=== PATIENT | female | born 1940 | race Caucasian/White ===

== ENCOUNTER 2020-03-01 14:26 | Emergency (ER) | payer SELFPAY ==
--- NOTE | 2020-03-01 14:58 | EDM.PDOC ---
ED [facility] GENERAL MEDICAL PROBLEM - General Stated Complaint: AMBULANCE Time Seen by Provider: 03/01/20 14:45 Source of Information: Reports: Patient History Limitations: Reports: No Limitations - History of Present Illness INITIAL COMMENTS - FREE TEXT/NARRATIVE: This 80 yo female patient was brought to the ED by [facility] due to nausea, vomiting, chills and generalized body pain. The patient reports her symptoms started today. The patient reports she does have a history of neuropathy and is currently taking Kratom for her neuropathy. The the patient reports she normally takes her Kratom daily (orally). The patient reports she did not take her Kratom today. The patient denies any recent illnesses or trauma. The patient reports she does have a provider she sees for her neuropathy and has not seen him since last March. Onset: Today Duration: Constant Location: Reports: Generalized Quality: Reports: Other Severity: Moderate Improves with: Reports: None Worsens with: Reports: None Context: Reports: Other Associated Symptoms: Reports: No Other Symptoms Generalized Pain Score (Numeric/FACES): 10 - Related Data Allergies Allergy/AdvReac Type Severity Reaction Status Date / Time No Known Allergies Allergy Verified 03/01/20 15:21 ED ROS GENERAL - Review of Systems Review Of Systems: Comprehensive ROS is negative, except as noted in HPI. ED EXAM, GENERAL - Physical Exam Exam: See Below Exam Limited By: No Limitations General Appearance: Alert, WD/WN, Moderate Distress, Obese Eye Exam: Bilateral Eye: EOMI, Normal Inspection, PERRL Ears: Normal External Exam, Normal Canal, Hearing Grossly Normal, Normal TMs Nose: Normal Inspection, Normal Mucosa, No Blood Throat/Mouth: Normal Inspection, Normal Lips, Normal Teeth, Normal Gums, Normal Oropharynx, Normal Voice, No Airway Compromise Head: Atraumatic, Normocephalic Neck: Normal Inspection, Supple, Non-Tender, Full Range of Motion Respiratory/Chest: Decreased Breath Sounds (diffuse) Cardiovascular: Normal Peripheral Pulses, Regular Rate, Rhythm, No Edema, No Gallop, No JVD, No Murmur, No Rub GI/Abdominal: Normal Bowel Sounds, Soft, Non-Tender, No Organomegaly, No Distention, No Abnormal Bruit, No Mass (Female) Exam: Deferred Rectal (Female) Exam: Deferred Back Exam: Normal Inspection, Full Range of Motion, NT Extremities: Normal Inspection, Normal Range of Motion, Non-Tender, Normal Capillary Refill, No Pedal Edema Neurological: Alert, Oriented, CN II-XII Intact, Normal Cognition Psychiatric: Anxious Skin Exam: Diaphoretic, Increased Warmth Lymphatic: No Adenopathy Course - Vital Signs Last Recorded V/S: Last Vital Signs Temp Pulse 127 H 03/01/20 16:45 Resp 16 03/01/20 16:45 BP 135/72 03/01/20 16:45 Pulse Ox 100 03/01/20 16:45 - Orders/Labs/Meds Orders: Active Orders 24 hr Category Date Time Status EKG Documentation Completion [RC] STAT Care 03/01/20 14:32 Active CULTURE BLOOD [BC] Stat Lab 03/01/20 15:01 Results CULTURE BLOOD [BC] Stat Lab 03/01/20 16:38 Received CULTURE URINE [RM] Urgent Lab 03/01/20 17:53 Received REFLEX LACTIC ACID YES OR NO [CHEM] Routine Lab 03/01/20 16:12 Received Labs: Laboratory Tests 03/01/20 03/01/20 03/01/20 Range/Units 14:48 15:01 15:01 WBC 1.0 L* (5.0-10.0) 10^3/uL RBC 3.76 L (4.2-5.4) 10^6/uL Hgb 13.0 (12.0-16.0) g/dL Hct 40.6 (37.0-47.0) % MCV 108.0 H (80-100) fL MCH 34.6 H (27.0-34.0) pg MCHC 32.0 L (33.0-35.0) g/dL Plt Count 108 L (150-450) 10^3/uL Neut % (Auto) 88.2 H (42.2-75.2) % Lymph % (Auto) 8.8 L (20.5-50.1) % [place] % (Auto) 0.0 L (2-8) % Eos % (Auto) 1.0 (1.0-3.0) % Baso % (Auto) 2.0 H (0.0-1.0) % Add Manual Diff Yes Neutrophils % (Manual) 34 L (42-75) % Band Neutrophils % 30 % Lymphocytes % (Manual) 21 (20-50) % Eosinophils % (Manual) 5 H (1-3) % Metamyelocytes % 2 Myelocytes % 5 Promyelocytes % 3 D-Dimer, Quantitative 3430 H (0-400) ng/mL Sodium (136-145) mmol/L Potassium (3.5-5.1) mmol/L Chloride (98-107) mmol/L Carbon Dioxide (21-32) mmol/L Anion Gap (7-13) mEq/L BUN (7-18) mg/dL Creatinine (0.55-1.02) mg/dL Est Cr Clr Drug Dosing Estimated GFR (MDRD) BUN/Creatinine Ratio (No establ ref range) Glucose (74-99) mg/dL Lactic Acid (0.4-2.0) mmol/L Calcium (8.5-10.1) mg/dL Total Bilirubin (0.2-1.0) mg/dL AST (15-37) U/L ALT (14-59) U/L Alkaline Phosphatase (46-116) U/L Troponin I (0.000-0.056) ng/mL B-Natriuretic Peptide (0-100) pg/ml Total Protein (6.4-8.2) g/dL Albumin (3.4-5.0) g/dL Globulin Albumin/Globulin Ratio Urine Color (YELLOW) Urine Appearance (CLEAR) Urine pH (5.0-9.0) Ur Specific [place] (1.005-1.030) Urine Protein (NEGATIVE) Urine Glucose (UA) (NEGATIVE) Urine Ketones (NEGATIVE) Urine Occult Blood (NEGATIVE) Urine Nitrite (NEGATIVE) Urine Bilirubin (NEGATIVE) Urine Urobilinogen (0.2-1.0) mg/dL Ur Leukocyte Esterase (NEGATIVE) Urine RBC /HPF Urine WBC (0-5/HPF) /HPF Ur Epithelial Cells (NOT SEEN) /HPF Amorphous Sediment (NOT SEEN) /HPF Urine Bacteria (0-FEW/HPF) /HPF Fine Granular Casts (NOT SEEN) /LPF Urine Mucus (NOT SEEN) /LPF Urine Opiates Screen (NEGATIVE) Ur Oxycodone Screen (NEGATIVE) Urine Methadone Screen (NEGATIVE) Ur Barbiturates Screen (NEGATIVE) U Tricyclic Antidepress (NEGATIVE) Ur Phencyclidine Scrn (NEGATIVE) Ur Amphetamine Screen (NEGATIVE) U Methamphetamines Scrn (NEGATIVE) Urine MDMA Screen (NEGATIVE) U Benzodiazepines Scrn (NEGATIVE) Urine Cocaine Screen (NEGATIVE) U Marijuana (THC) Screen (NEGATIVE) SARS-CoV-2 RNA (DHEERAJ) Negative (NEGATIVE) 03/01/20 03/01/20 03/01/20 Range/Units 15:01 15:01 17:52 WBC (5.0-10.0) 10^3/uL RBC (4.2-5.4) 10^6/uL Hgb (12.0-16.0) g/dL Hct (37.0-47.0) % MCV (80-100) fL MCH (27.0-34.0) pg MCHC (33.0-35.0) g/dL Plt Count (150-450) 10^3/uL Neut % (Auto) (42.2-75.2) % Lymph % (Auto) (20.5-50.1) % [place] % (Auto) (2-8) % Eos % (Auto) (1.0-3.0) % Baso % (Auto) (0.0-1.0) % Add Manual Diff Neutrophils % (Manual) (42-75) % Band Neutrophils % % Lymphocytes % (Manual) (20-50) % Eosinophils % (Manual) (1-3) % Metamyelocytes % Myelocytes % Promyelocytes % D-Dimer, Quantitative (0-400) ng/mL Sodium 144 (136-145) mmol/L Potassium 3.4 L (3.5-5.1) mmol/L Chloride 107 (98-107) mmol/L Carbon Dioxide 20 L (21-32) mmol/L Anion Gap 20.4 H (7-13) mEq/L BUN 18 (7-18) mg/dL Creatinine 1.58 H (0.55-1.02) mg/dL Est Cr Clr Drug Dosing TNP Estimated GFR (MDRD) 31 BUN/Creatinine Ratio 11.4 (No establ ref range) Glucose 73 L (74-99) mg/dL Lactic Acid 2.7 H* (0.4-2.0) mmol/L Calcium 8.3 L (8.5-10.1) mg/dL Total Bilirubin 1.5 H (0.2-1.0) mg/dL AST 159 H (15-37) U/L ALT 127 H (14-59) U/L Alkaline Phosphatase 173 H (46-116) U/L Troponin I 0.051 (0.000-0.056) ng/mL B-Natriuretic Peptide 100 (0-100) pg/ml Total Protein 5.5 L (6.4-8.2) g/dL Albumin 3.3 L (3.4-5.0) g/dL Globulin 2.2 Albumin/Globulin Ratio 1.50 Urine Color (YELLOW) Urine Appearance (CLEAR) Urine pH (5.0-9.0) Ur Specific [place] (1.005-1.030) Urine Protein (NEGATIVE) Urine Glucose (UA) (NEGATIVE) Urine Ketones (NEGATIVE) Urine Occult Blood (NEGATIVE) Urine Nitrite (NEGATIVE) Urine Bilirubin (NEGATIVE) Urine Urobilinogen (0.2-1.0) mg/dL Ur Leukocyte Esterase (NEGATIVE) Urine RBC /HPF Urine WBC (0-5/HPF) /HPF Ur Epithelial Cells (NOT SEEN) /HPF Amorphous Sediment (NOT SEEN) /HPF Urine Bacteria (0-FEW/HPF) /HPF Fine Granular Casts (NOT SEEN) /LPF Urine Mucus (NOT SEEN) /LPF Urine Opiates Screen Negative (NEGATIVE) Ur Oxycodone Screen Negative (NEGATIVE) Urine Methadone Screen Negative (NEGATIVE) Ur Barbiturates Screen Negative (NEGATIVE) U Tricyclic Antidepress Negative (NEGATIVE) Ur Phencyclidine Scrn Negative (NEGATIVE) Ur Amphetamine Screen Negative (NEGATIVE) U Methamphetamines Scrn Negative (NEGATIVE) Urine MDMA Screen Negative (NEGATIVE) U Benzodiazepines Scrn Negative (NEGATIVE) Urine Cocaine Screen Negative (NEGATIVE) U Marijuana (THC) Screen Positive H (NEGATIVE) SARS-CoV-2 RNA (DHEERAJ) (NEGATIVE) 03/01/20 Range/Units 17:53 WBC (5.0-10.0) 10^3/uL RBC (4.2-5.4) 10^6/uL Hgb (12.0-16.0) g/dL Hct (37.0-47.0) % MCV (80-100) fL MCH (27.0-34.0) pg MCHC (33.0-35.0) g/dL Plt Count (150-450) 10^3/uL Neut % (Auto) (42.2-75.2) % Lymph % (Auto) (20.5-50.1) % [place] % (Auto) (2-8) % Eos % (Auto) (1.0-3.0) % Baso % (Auto) (0.0-1.0) % Add Manual Diff Neutrophils % (Manual) (42-75) % Band Neutrophils % % Lymphocytes % (Manual) (20-50) % Eosinophils % (Manual) (1-3) % Metamyelocytes % Myelocytes % Promyelocytes % D-Dimer, Quantitative (0-400) ng/mL Sodium (136-145) mmol/L Potassium (3.5-5.1) mmol/L Chloride (98-107) mmol/L Carbon Dioxide (21-32) mmol/L Anion Gap (7-13) mEq/L BUN (7-18) mg/dL Creatinine (0.55-1.02) mg/dL Est Cr Clr Drug Dosing Estimated GFR (MDRD) BUN/Creatinine Ratio (No establ ref range) Glucose (74-99) mg/dL Lactic Acid (0.4-2.0) mmol/L Calcium (8.5-10.1) mg/dL Total Bilirubin (0.2-1.0) mg/dL AST (15-37) U/L ALT (14-59) U/L Alkaline Phosphatase (46-116) U/L Troponin I (0.000-0.056) ng/mL B-Natriuretic Peptide (0-100) pg/ml Total Protein (6.4-8.2) g/dL Albumin (3.4-5.0) g/dL Globulin Albumin/Globulin Ratio Urine Color Yellow (YELLOW) Urine Appearance Slightly cloudy (CLEAR) Urine pH 6.0 (5.0-9.0) Ur Specific [place] 1.015 (1.005-1.030) Urine Protein 100 H (NEGATIVE) Urine Glucose (UA) Negative (NEGATIVE) Urine Ketones Negative (NEGATIVE) Urine Occult Blood Moderate H (NEGATIVE) Urine Nitrite Positive H (NEGATIVE) Urine Bilirubin Negative (NEGATIVE) Urine Urobilinogen 0.2 (0.2-1.0) mg/dL Ur Leukocyte Esterase Small H (NEGATIVE) Urine RBC 5-10 H /HPF Urine WBC 10-20 H (0-5/HPF) /HPF Ur Epithelial Cells Few (NOT SEEN) /HPF Amorphous Sediment Few (NOT SEEN) /HPF Urine Bacteria Many H (0-FEW/HPF) /HPF Fine Granular Casts Occasional H (NOT SEEN) /LPF Urine Mucus Few H (NOT SEEN) /LPF Urine Opiates Screen (NEGATIVE) Ur Oxycodone Screen (NEGATIVE) Urine Methadone Screen (NEGATIVE) Ur Barbiturates Screen (NEGATIVE) U Tricyclic Antidepress (NEGATIVE) Ur Phencyclidine Scrn (NEGATIVE) Ur Amphetamine Screen (NEGATIVE) U Methamphetamines Scrn (NEGATIVE) Urine MDMA Screen (NEGATIVE) U Benzodiazepines Scrn (NEGATIVE) Urine Cocaine Screen (NEGATIVE) U Marijuana (THC) Screen (NEGATIVE) SARS-CoV-2 RNA (DHEERAJ) (NEGATIVE) Meds: Medications Discontinued Medications Generic Name Dose Route Start Last Admin Trade Name Freq PRN Reason Stop Dose Admin Sodium Chloride 1,000 mls @ 999 mls/hr 03/01/20 16:23 03/01/20 16:46 Normal Saline IV 03/01/20 17:23 999 mls/hr .BOLUS ONE Administration Lorazepam 1 mg 03/01/20 16:23 03/01/20 16:46 Ativan IVPUSH 03/01/20 16:24 1 mg ONETIME ONE Administration Metoclopramide HCl 10 mg 03/01/20 16:23 03/01/20 16:46 Reglan IVPUSH 03/01/20 16:24 10 mg ONETIME ONE Administration - Re-Assessments/Exams Free Text/Narrative Re-Assessment/Exam: 03/01/20 19:05 A call was placed to the patient's daughter (Anat) explaining the assessment and lab findings. The patient's daughter agreed with the transfer to [facility]. Departure - Departure Time of Disposition: 19:01 Disposition: DC/Tfer to [facility] 02 Condition: Fair Clinical Impression: Hypoxemia, Elevated d-dimer, Elevated LFTs Acute renal failure (ARF) Qualifiers: Acute renal failure type: unspecified Qualified Code(s): N17.9 - Acute kidney failure, unspecified - Discharge Information *PRESCRIPTION DRUG MONITORING PROGRAM REVIEWED*: Not Applicable *COPY OF PRESCRIPTION DRUG MONITORING REPORT IN PATIENT JOHN: Not Applicable Forms: Interfacility Transfer EMTALA Care Plan Goals: Discussed the patient's history, examination, EKG and lab results with Dr. Doe. Dr. Doe accepted the patient for continued evaluation and further management as an inpatient at [facility] in [place]. The patient will be transported by [facility]. Sepsis Event Note (ED) - Focused Exam Vital Signs: Vital Signs Pulse Resp BP Pulse Ox 03/01/20 16:45 127 H 16 135/72 100 - My Orders Last 24 Hours: My Active Orders 03/01/20 14:32 EKG Documentation Completion [RC] STAT 03/01/20 15:01 CULTURE BLOOD [BC] Stat 03/01/20 16:12 REFLEX LACTIC ACID YES OR NO [CHEM] Routine 03/01/20 16:38 CULTURE BLOOD [BC] Stat 03/01/20 17:53 CULTURE URINE [RM] Urgent - Assessment/Plan Last 24 Hours: My Active Orders 03/01/20 14:32 EKG Documentation Completion [RC] STAT 03/01/20 15:01 CULTURE BLOOD [BC] Stat 03/01/20 16:12 REFLEX LACTIC ACID YES OR NO [CHEM] Routine 03/01/20 16:38 CULTURE BLOOD [BC] Stat 03/01/20 17:53 CULTURE URINE [RM] Urgent
[2020-03-01 16:02] LABS: ANION GAP 20.4 mEq/L (7-13); CHLORIDE,CL 107 mmol/L (98-107); SODIUM,NA 144 mmol/L (136-145)
[2020-03-01] MEDS: Metoclopramide 10 MG/2 ML SDV IVPUSH ONE (16:46)
[2020-03-01] MEDS: Sodium Chloride 0.9% 1,000 ML IV ONE (16:46)
[2020-03-01] MEDS: LORazepam 2 MG/ML SDV IVPUSH ONE (16:46)
== END 2020-03-01 19:24 ==
LOC: DL.ED 14:26
DX: N17.9 Acute kidney failure, unspecified (principal); R09.02 Hypoxemia; R79.1 Abnormal coagulation profile; R79.89 Other specified abnormal findings of blood chemistry; Z20.828 Contact with and (suspected) exposure to other viral communicable diseases
CPT/HCPCS: 36415; 80053; 80305; 81001; 83605; 83880; 84484; 85025; 85379; 87040; 87077; 87086; 87088; 87186; 87635; 93005; 96374; 96375; 99285; J2060; J2765; J7030; 93010; 99283; U0002

== ENCOUNTER 2020-03-11 11:36 | Inpatient (IN) | payer MEDICARE ==
[2020-03-11] MEDS: cefTRIAXone 2 GM in Sodium Chloride 0.9% 100 ML IV SCH (17:41)
[2020-03-11] MEDS: Sodium Chloride 0.9% 10 ML Syringe FLUSH PRN ×2 (17:43→18:28)
--- NOTE | 2020-03-11 17:43 | PCM.HP ---
H&P History of Present Illness - General Date of Service: 03/11/20 Admit Problem/Dx: Admission Diagnosis/Problem Admission Diagnosis/Problem Sepsis Source of Information: Patient, Other (notes from [facility]) - History of Present Illness Initial Comments - Free Text/Narative: 80-year-old with a history of hypertension, dyslipidemia, chronic back pain. The patient was admitted to [facility] with acute metabolic encephalopathy secondary to sepsis secondary to UTI with Proteus mirabilis. The patient was also noted to have hydronephrosis on the left side with a 4 mm stone. The patient's blood cultures were positive for proteus. The patient underwent ureteral stent placement on 03 March. infectious disease was consulted and the patient was treated with ceftriaxone PICC line placed The patient was transferred to [facility] for further physical, occupational therapy and IV antibiotic Treatment. Auditory studies on 10 March showed a white count of 7, hemoglobin 11.2, platelet count of 88. On 08 March sodium was 140, creatinine 0.8 Generalized Pain Score (Numeric/FACES): 6 - Related Data Allergies/Adverse Reactions: Allergies Allergy/AdvReac Type Severity Reaction Status Date / Time No Known Allergies Allergy Verified 03/11/20 12:42 Home Medications: Home Meds Acetaminophen 1,000 mg PO Q6HR PRN 03/11/20 [History] Ascorbic Acid [Vitamin C] 500 mg PO DAILY 03/11/20 [History] Cholecalciferol (Vitamin D3) [Vitamin D3] 2,000 unit PO DAILY 03/11/20 [History] Gabapentin [Neurontin] 100 mg PO TID 03/11/20 [History] Ibuprofen 400 mg PO Q6HR PRN 03/11/20 [History] Magnesium Oxide 400 mg PO DAILY 03/11/20 [History] Vitamin B Complex 1 tab PO DAILY 03/11/20 [History] amLODIPine [Norvasc] 10 mg PO DAILY 03/11/20 [History] busPIRone [Buspar] 5 mg PO BID 03/11/20 [History] Past Medical History HEENT History: Reports: Other (See Below) Other HEENT History: lasik surgery Cardiovascular History: Reports: Hypertension Genitourinary History: Reports: Retention, Urinary, Urinary Incontinence, UTI, Recurrent PATIENT EDUCATOR History: Reports: Musculoskeletal History: Reports: Arthritis, Back Pain, Chronic, Osteoarthritis Neurological History: Reports: Neuropathy, Peripheral Oncologic (Cancer) History: Reports: Other (See Below) Other Oncologic History: Double mastectomy - Infectious Disease History Infectious Disease History: Reports: Chicken Pox, Influenza, Measles, Mumps, Rubella, Shingles - Past Surgical History HEENT Surgical History: Reports: LASIK Cardiovascular Surgical History: Reports: None GI Surgical History: Reports: Cholecystectomy, Colonoscopy Female Surgical History: Reports: Ureteral Stent Neurological Surgical History: Reports: None Musculoskeletal Surgical History: Reports: Shoulder Replacement, Other (See Below) Other Musculoskeletal Surgeries/Procedures:: both shoulders Oncologic Surgical History: Reports: Mastectomy Social & Family History - Family History Family Medical History: No Pertinent Family History - Tobacco Use Tobacco Use Status *Q: Never Tobacco User Second Hand Smoke Exposure: No - Caffeine Use Caffeine Use: Reports: Coffee - Recreational Drug Use Recreational Drug Use: No H&P Review of Systems - Review of Systems: Review Of Systems: See Below General: Denies: Fever, Chills Pulmonary: Denies: Shortness of Breath Cardiovascular: Denies: Chest Pain, Edema Gastrointestinal: Denies: Abdominal Pain Genitourinary: Reports: Other (has Dent catheter). Denies: Dysuria Psychiatric: Denies: Confusion Exam - Exam Exam: See Below - Vital Signs Vital Signs: Last Vital Signs Temp 97.0 F 03/11/20 17:18 Pulse 112 H 03/11/20 17:18 Resp 20 03/11/20 17:18 BP 130/69 03/11/20 17:18 Pulse Ox 94 L 03/11/20 17:18 Weight: 174 lb - Exam General: Alert, Oriented Neck: Supple Lungs: Clear to Auscultation, Normal Respiratory Effort Cardiovascular: Regular Rate, Regular Rhythm GI/Abdominal Exam: Normal Bowel Sounds, Soft, Non-Tender Extremities: No Pedal Edema Neuro Extensive - Mental Status: Alert, Oriented x3 *Q Meaningful Use (ADM) - VTE *Q VTE Anticoagulation Contraindications: Medical/Procedure Contrai - Problem List (1) Sepsis SNOMED Code(s): 11335244 ICD Code: A41.9 - SEPSIS, UNSPECIFIED ORGANISM Status: Acute Current Visit: Yes (2) Weakness SNOMED Code(s): 39017537 ICD Code: R53.1 - WEAKNESS Status: Acute Current Visit: Yes (3) Hypertension SNOMED Code(s): 52185687 ICD Code: I10 - ESSENTIAL (PRIMARY) HYPERTENSION Status: Acute Current Visit: Yes Problem List Initiated/Reviewed/Updated: Yes Orders Last 24hrs: Active Orders 24 hr Category Date Time Status Patient Status [ADT] Routine ADT 03/11/20 17:18 Active Ambulate [RC] PER UNIT ROUTINE Care 03/11/20 17:19 Active Antiembolic Devices [RC] PER UNIT ROUTINE Care 03/11/20 17:20 Active Oxygen Therapy [RC] .PRN Care 03/11/20 17:18 Active Up With Assistance [RC] ASDIRECTED Care 03/11/20 17:18 Active Vital Signs [RC] QSHIFT Care 03/11/20 17:18 Active OT Evaluation and Treatment [CONS] Routine Cons 03/11/20 17:18 Active PT Evaluation and Treatment [CONS] Routine Cons 03/11/20 17:18 Active Regular Diet [DIET] Diet 03/11/20 Breakfast Cancelled Soft Diet [DIET] Diet 03/12/20 Breakfast Active Acetaminophen [Tylenol Extra Strength] Med 03/11/20 17:14 Active 1,000 mg PO Q6HR PRN Ascorbic Acid [Vitamin C] Med 03/12/20 09:00 Active 500 mg PO DAILY Cholecalciferol (Vitamin D3) [Vitamin D3] Med 03/12/20 09:00 Active 50 mcg PO DAILY Gabapentin [Neurontin] Med 03/11/20 21:00 Active 100 mg PO TID Magnesium Oxide [Magnesium Oxide] Med 03/12/20 09:00 Pending 400 mg PO DAILY Sodium Chloride 0.9% [Saline Flush] Med 03/11/20 17:18 Active 10 ml FLUSH ASDIRECTED PRN Vitamin B Complex Med 03/12/20 09:00 Active 1 each PO DAILY Zolpidem [Ambien] Med 03/11/20 17:18 Active 5 mg PO BEDTIME PRN amLODIPine [Norvasc] Med 03/12/20 09:00 Active 10 mg PO DAILY busPIRone [Buspar] Med 03/11/20 21:00 Active 7.5 mg PO BID cefTRIAXone [Rocephin] 2 gm Med 03/11/20 17:30 Active Sodium Chloride 0.9% [Normal Saline] 100 ml IV Q24H Anticoagulation Contraindications VTE [AST] Per Unit Oth 03/11/20 17:18 Ordered Routine Antiembolic Hose [OM.PC] Per Unit Routine Oth 03/11/20 17:19 Ordered Peripheral IV Insertion Adult [OM.PC] Routine Oth 03/11/20 17:18 Ordered Saline Lock Insert [OM.PC] Routine Oth 03/11/20 17:18 Ordered Resuscitation Status Routine Resus Stat 03/11/20 17:18 Ordered Medication Orders Acetaminophen (Tylenol Extra Strength) 1,000 mg PO Q6HR PRN PRN Reason: Pain (mild 1-3) Amlodipine Besylate (Norvasc) 10 mg PO DAILY LIZETT Ascorbic Acid (Vitamin C) 500 mg PO DAILY LIZETT Buspirone HCl (Buspar) 7.5 mg PO BID LIZETT Cholecalciferol (Vitamin D3) 50 mcg PO DAILY LIZETT Gabapentin (Neurontin) 100 mg PO TID LIZETT Ceftriaxone Sodium 2 gm/ (Sodium Chloride) 100 mls @ 200 mls/hr IV Q24H LIZETT Non-Formulary Medication (Magnesium Oxide [Magnesium Oxide]) 400 mg PO DAILY LIZETT Sodium Chloride (Saline Flush) 10 ml FLUSH ASDIRECTED PRN PRN Reason: Keep Vein Open Vitamin B Complex (Vitamin B Complex) 1 each PO DAILY LIZETT Zolpidem Tartrate (Ambien) 5 mg PO BEDTIME PRN PRN Reason: Sleep Assessment/Plan Comment:: 80-year-old with a history of hypertension, dyslipidemia, chronic back pain. The patient was admitted to [facility] with acute metabolic encephalopathy secondary to sepsis secondary to UTI with Proteus mirabilis. The patient was also noted to have hydronephrosis on the left side with a 4 mm stone. The patient's blood cultures were positive for proteus. The patient underwent ureteral stent placement on 03 March. infectious disease was consulted and the patient was treated with ceftriaxone PICC line placed The patient was transferred to [facility] for further physical, occupational therapy and IV antibiotic Treatment. Auditory studies on 10 March showed a white count of 7, hemoglobin 11.2, platelet count of 88. On 08 March sodium was 140, creatinine 0.8 sepsis due to Proteus mirabilis due to complecated urinary tract infection with left hydronephrosis due to ureteral stone continue IV antibiotic treatment with ceftriaxone Follow with ID Hydronephrosis and ureteral stone on the left side Ureteral drain placed Follow up with urology Maintain Dent catheter for now Hypertension Treat with Norvasc We'll monitor chronic back pain Continue Neurontin Ibuprofen as needed CODE STATUS was discussed, the patient wish full CODE STATUS
[2020-03-11] MEDS: Acetaminophen 500 MG Tab PO PRN (18:21)
[2020-03-11] MEDS: busPIRone 15 MG Tab PO SCH (20:11)
[2020-03-11] MEDS: Gabapentin 100 MG Cap PO SCH (20:11)
[2020-03-11] MEDS: Zolpidem 5 MG Tab PO PRN (20:11)
[2020-03-11] MEDS ORDERED: BUSPIRONE 5 MG PO SCH (21:00)
[2020-03-11] MEDS: Ibuprofen 400 MG Tab PO PRN (22:35)
[2020-03-12] MEDS: Acetaminophen 500 MG Tab PO PRN ×2 (05:34→11:49)
[2020-03-12] MEDS: Cholecalciferol (Vitamin D3) 25 MCG Tab PO SCH (08:51)
[2020-03-12] MEDS: Gabapentin 100 MG Cap PO SCH ×3 (08:52→20:02)
[2020-03-12] MEDS: amLODIPine 5 MG Tab PO SCH (08:52)
[2020-03-12] MEDS: Vitamin B Complex Cap PO SCH (08:52)
[2020-03-12] MEDS: busPIRone 15 MG Tab PO SCH ×2 (08:52→20:02)
[2020-03-12] MEDS: Ascorbic Acid 500 MG Tab PO SCH (08:53)
[2020-03-12] MEDS ORDERED: Non-Formulary Medication 1 Each (Magnesium Oxide [Magnesium Oxide] 400 MG) PO SCH (09:00)
[2020-03-12] MEDS: Mupirocin Oint 22 GM Tube TOP SCH ×2 (11:53→20:03)
[2020-03-12] MEDS: Nystatin Topical Powder 30 GM Bottle TOP SCH ×2 (11:53→20:03)
[2020-03-12] MEDS: Acetaminophen/HYDROcodone 325-5 MG Tab PO PRN ×2 (13:31→18:21)
[2020-03-12] MEDS: cefTRIAXone 2 GM in Sodium Chloride 0.9% 100 ML IV SCH (17:11)
[2020-03-12] MEDS: Zolpidem 5 MG Tab PO PRN (20:03)
[2020-03-13] MEDS: Acetaminophen/HYDROcodone 325-5 MG Tab PO PRN ×4 (01:52→19:55)
[2020-03-13] MEDS: Ibuprofen 400 MG Tab PO PRN (05:35)
[2020-03-13 07:04] LABS: ANION GAP 9.2 mEq/L (7-13); CHLORIDE,CL 106 mmol/L (98-107); SODIUM,NA 141 mmol/L (136-145)
[2020-03-13] MEDS ORDERED: Potassium Chloride 10 MEQ Tab.ER PO ONE (07:20)
[2020-03-13] MEDS: Ascorbic Acid 500 MG Tab PO SCH (10:02)
[2020-03-13] MEDS: Gabapentin 100 MG Cap PO SCH ×3 (10:02→19:59)
[2020-03-13] MEDS: Vitamin B Complex Cap PO SCH (10:02)
[2020-03-13] MEDS: busPIRone 15 MG Tab PO SCH ×2 (10:03→19:59)
[2020-03-13] MEDS: Cholecalciferol (Vitamin D3) 25 MCG Tab PO SCH (10:03)
[2020-03-13] MEDS: Mupirocin Oint 22 GM Tube TOP SCH ×2 (10:04→20:03)
[2020-03-13] MEDS: Nystatin Topical Powder 30 GM Bottle TOP SCH ×2 (10:04→20:04)
[2020-03-13] MEDS: amLODIPine 5 MG Tab PO SCH (10:04)
[2020-03-13] MEDS: Sodium Chloride 0.9% 10 ML Syringe FLUSH PRN ×2 (17:35→21:01)
[2020-03-13] MEDS: cefTRIAXone 2 GM in Sodium Chloride 0.9% 100 ML IV SCH (17:35)
[2020-03-14] MEDS: Acetaminophen/HYDROcodone 325-5 MG Tab PO PRN ×4 (02:08→21:42)
[2020-03-14] MEDS: Ibuprofen 400 MG Tab PO PRN ×3 (05:34→23:33)
[2020-03-14] MEDS: Acetaminophen 500 MG Tab PO PRN ×2 (07:12→23:32)
[2020-03-14] MEDS: Vitamin B Complex Cap PO SCH (08:11)
[2020-03-14] MEDS: Ascorbic Acid 500 MG Tab PO SCH (08:12)
[2020-03-14] MEDS: amLODIPine 5 MG Tab PO SCH (08:12)
[2020-03-14] MEDS: Cholecalciferol (Vitamin D3) 25 MCG Tab PO SCH (08:12)
[2020-03-14] MEDS: busPIRone 15 MG Tab PO SCH ×2 (08:13→21:44)
[2020-03-14] MEDS: Gabapentin 100 MG Cap PO SCH ×2 (08:13→13:38)
[2020-03-14] MEDS: Mupirocin Oint 22 GM Tube TOP SCH ×2 (08:17→21:48)
[2020-03-14] MEDS: Nystatin Topical Powder 30 GM Bottle TOP SCH ×2 (08:17→21:49)
[2020-03-14] MEDS: Sodium Chloride 0.9% 10 ML Syringe FLUSH PRN ×2 (17:31→21:56)
[2020-03-14] MEDS: cefTRIAXone 2 GM in Sodium Chloride 0.9% 100 ML IV SCH (17:32)
[2020-03-14] MEDS: Gabapentin 300 MG Cap PO SCH (21:46)
[2020-03-15] MEDS: Acetaminophen/HYDROcodone 325-5 MG Tab PO PRN ×4 (06:37→20:25)
[2020-03-15] MEDS: Gabapentin 300 MG Cap PO SCH ×3 (09:02→20:25)
[2020-03-15] MEDS: Vitamin B Complex Cap PO SCH (09:02)
[2020-03-15] MEDS: Ascorbic Acid 500 MG Tab PO SCH (09:03)
[2020-03-15] MEDS: busPIRone 15 MG Tab PO SCH ×2 (09:03→20:25)
[2020-03-15] MEDS: Cholecalciferol (Vitamin D3) 25 MCG Tab PO SCH (09:03)
[2020-03-15] MEDS: amLODIPine 5 MG Tab PO SCH (09:04)
[2020-03-15] MEDS: Mupirocin Oint 22 GM Tube TOP SCH ×2 (09:10→20:32)
[2020-03-15] MEDS: Nystatin Topical Powder 30 GM Bottle TOP SCH ×2 (09:10→20:33)
[2020-03-15] MEDS: cefTRIAXone 2 GM in Sodium Chloride 0.9% 100 ML IV SCH (17:46)
[2020-03-15] MEDS: Ibuprofen 400 MG Tab PO PRN (20:31)
[2020-03-16] MEDS: Acetaminophen/HYDROcodone 325-5 MG Tab PO PRN ×4 (00:31→14:20)
[2020-03-16] MEDS: Nystatin Topical Powder 30 GM Bottle TOP SCH ×2 (10:18→21:01)
[2020-03-16] MEDS: Mupirocin Oint 22 GM Tube TOP SCH ×2 (10:19→21:03)
[2020-03-16] MEDS: Gabapentin 300 MG Cap PO SCH ×3 (10:19→20:49)
[2020-03-16] MEDS: Cholecalciferol (Vitamin D3) 25 MCG Tab PO SCH (10:19)
[2020-03-16] MEDS: amLODIPine 5 MG Tab PO SCH (10:20)
[2020-03-16] MEDS: Vitamin B Complex Cap PO SCH (10:20)
[2020-03-16] MEDS: Ascorbic Acid 500 MG Tab PO SCH (10:20)
[2020-03-16] MEDS: busPIRone 15 MG Tab PO SCH ×2 (10:21→20:50)
[2020-03-16] MEDS: cefTRIAXone 2 GM in Sodium Chloride 0.9% 100 ML IV SCH (17:23)
[2020-03-16] MEDS: Acetaminophen 500 MG Tab PO PRN (20:57)
[2020-03-17] MEDS: Acetaminophen/HYDROcodone 325-5 MG Tab PO PRN ×6 (00:15→20:55)
[2020-03-17] MEDS: Ibuprofen 400 MG Tab PO PRN (04:11)
[2020-03-17 06:56] LABS: ANION GAP 13.7 mEq/L (7-13); CHLORIDE,CL 106 mmol/L (98-107); SODIUM,NA 142 mmol/L (136-145)
[2020-03-17] MEDS: busPIRone 15 MG Tab PO SCH ×2 (08:33→20:08)
[2020-03-17] MEDS: Cholecalciferol (Vitamin D3) 25 MCG Tab PO SCH (08:33)
[2020-03-17] MEDS: Vitamin B Complex Cap PO SCH (08:33)
[2020-03-17] MEDS: Ascorbic Acid 500 MG Tab PO SCH (08:33)
[2020-03-17] MEDS: amLODIPine 5 MG Tab PO SCH (08:34)
[2020-03-17] MEDS: Gabapentin 300 MG Cap PO SCH ×3 (08:34→20:08)
[2020-03-17] MEDS: Loperamide 2 MG Cap PO PRN ×2 (08:40→15:55)
--- NOTE | 2020-03-17 10:46 | PN ---
DATE: 03/17/2020 SUBJECTIVE: The patient is an 80-year-old female with past medical history of hypertension, dyslipidemia, chronic back pain, who was admitted to [facility] because of acute metabolic encephalopathy secondary to sepsis and secondary to urinary tract infection with Proteus mirabilis. The patient is admitted to [facility] bed for continued PT and OT and IV antibiotics. The patient also had left hydronephrosis due to ureteral stone and the patient had stent placement of the left ureter, 03/03/2020. The patient currently is still on IV antibiotics (Rocephin) for the recent urosepsis and she is also being followed by Infectious Disease for this. The patient has been complaining of chronic low back pain and we did increase her gabapentin to 300 mg t.i.d. and we also increased her hydrocodone to every 4 hours. Otherwise, she denies any fever, chills, chest pain, shortness of breath, or any other complaints. LABORATORY DATA: Lab workup this morning, CBC; WBC is 11.5, hemoglobin is 9.9, hematocrit is 31.4, platelets 263. Comp panel unremarkable. Alkaline phosphatase is 173. C-reactive protein is 3.5, total protein is 5.6, albumin is 2.2. OBJECTIVE: Vital Signs: Blood pressure is 127/51, pulse of 92, respirations 20, temperature of 97.3, saturation is 92% on room air. Heart: Regular rate and rhythm. Normal S1 and S2. No gallops. No rubs. Lungs: Equal bilaterally. No crackles. No wheezing. Abdomen: Soft, nontender. Bowel sounds positive. Extremities: Negative for any significant pedal edema. No calf tenderness. MEDICATIONS: Reviewed. PLAN: We will continue with her present IV antibiotics, and I have discussed with the patient regarding the hydrocodone which she has been taking for her chronic back pain, that this will only be given p.r.n. every 4 hours and this would not be given to her when she is sleeping. [facility] /[id number]
[2020-03-17] MEDS: Nystatin Topical Powder 30 GM Bottle TOP SCH ×2 (13:07→20:08)
[2020-03-17] MEDS: Mupirocin Oint 22 GM Tube TOP SCH ×2 (13:08→20:07)
[2020-03-17] MEDS: cefTRIAXone 2 GM in Sodium Chloride 0.9% 100 ML IV SCH (16:47)
[2020-03-18] MEDS: Acetaminophen/HYDROcodone 325-5 MG Tab PO PRN ×6 (02:06→22:29)
[2020-03-18] MEDS: Ascorbic Acid 500 MG Tab PO SCH (08:39)
[2020-03-18] MEDS: Cholecalciferol (Vitamin D3) 25 MCG Tab PO SCH (08:39)
[2020-03-18] MEDS: Vitamin B Complex Cap PO SCH (08:39)
[2020-03-18] MEDS: busPIRone 15 MG Tab PO SCH ×2 (08:39→20:13)
[2020-03-18] MEDS: Gabapentin 300 MG Cap PO SCH ×3 (08:40→20:13)
[2020-03-18] MEDS: Ibuprofen 400 MG Tab PO PRN ×2 (08:40→20:13)
[2020-03-18] MEDS: amLODIPine 5 MG Tab PO SCH (08:40)
[2020-03-18] MEDS: Mupirocin Oint 22 GM Tube TOP SCH ×2 (08:42→20:13)
[2020-03-18] MEDS: Nystatin Topical Powder 30 GM Bottle TOP SCH ×2 (08:43→20:14)
[2020-03-18] MEDS: cefTRIAXone 2 GM in Sodium Chloride 0.9% 100 ML IV SCH (17:28)
[2020-03-19] MEDS: Acetaminophen/HYDROcodone 325-5 MG Tab PO PRN ×5 (02:39→20:32)
[2020-03-19] MEDS: Vitamin B Complex Cap PO SCH (07:59)
[2020-03-19] MEDS: busPIRone 15 MG Tab PO SCH ×2 (07:59→20:31)
[2020-03-19] MEDS: Gabapentin 300 MG Cap PO SCH ×3 (07:59→20:32)
[2020-03-19] MEDS: amLODIPine 5 MG Tab PO SCH (08:00)
[2020-03-19] MEDS: Cholecalciferol (Vitamin D3) 25 MCG Tab PO SCH (08:00)
[2020-03-19] MEDS: Ascorbic Acid 500 MG Tab PO SCH (08:00)
[2020-03-19] MEDS: Mupirocin Oint 22 GM Tube TOP SCH ×2 (11:54→21:45)
[2020-03-19] MEDS: Nystatin Topical Powder 30 GM Bottle TOP SCH ×2 (11:54→21:45)
[2020-03-19] MEDS: cefTRIAXone 2 GM in Sodium Chloride 0.9% 100 ML IV SCH (17:54)
[2020-03-19] MEDS: Zolpidem 5 MG Tab PO PRN (21:43)
[2020-03-19] MEDS: Ibuprofen 400 MG Tab PO PRN (21:44)
[2020-03-20] MEDS: Acetaminophen/HYDROcodone 325-5 MG Tab PO PRN ×3 (02:23→12:55)
[2020-03-20] MEDS: Ascorbic Acid 500 MG Tab PO SCH (08:19)
[2020-03-20] MEDS: busPIRone 15 MG Tab PO SCH (08:19)
[2020-03-20] MEDS: Vitamin B Complex Cap PO SCH (08:19)
[2020-03-20] MEDS: Cholecalciferol (Vitamin D3) 25 MCG Tab PO SCH (08:19)
[2020-03-20] MEDS: Gabapentin 300 MG Cap PO SCH (08:20)
[2020-03-20] MEDS: amLODIPine 5 MG Tab PO SCH (08:20)
[2020-03-20] MEDS: Mupirocin Oint 22 GM Tube TOP SCH (08:20)
[2020-03-20] MEDS: Nystatin Topical Powder 30 GM Bottle TOP SCH (08:21)
--- NOTE | 2020-03-20 11:43 | PCM.DCSUM1 ---
Discharge Summary - Hospital Course Free Text/Narrative:: 80-year-old with a history of hypertension, dyslipidemia, chronic back pain. The patient was admitted to [facility] with acute metabolic encephalopathy secondary to sepsis secondary to UTI with Proteus mirabilis. She was admitted to our swing bed to complete on IV antibiotic therapy and to continue PT/OT. She completed her IV antibiotic treatment. Her stay was uncomplicated. She was safely discharged home. She will follow-up with PCP and ID. Diagnosis: Stroke: No - Discharge Data Discharge Date: 03/20/20 Discharge Disposition: Home, Self-Care 01 Condition: Good - Referral to Home Health Primary Care Physician: PCP None - Patient Summary/Data Consults: Consultations 03/11/20 17:18 OT Evaluation and Treatment [CONS] Routine PT Evaluation and Treatment [CONS] Routine - Patient Instructions Diet: Heart Healthy Diet Fluid Restriction: 1500 mL Activity: As Tolerated Showering/Bathing: May Shower Notify Provider of: Fever, Increased Pain, Swelling and Redness, Nausea and/or Vomiting - Discharge Plan *PRESCRIPTION DRUG MONITORING PROGRAM REVIEWED*: Not Applicable *COPY OF PRESCRIPTION DRUG MONITORING REPORT IN PATIENT JOHN: Not Applicable Prescriptions/Med Rec: busPIRone [Buspar] 5 mg PO BID #30 Magnesium Oxide 400 mg PO DAILY #30 Gabapentin [Neurontin] 100 mg PO TID #90 amLODIPine [Norvasc] 10 mg PO DAILY #30 Nystatin [Nystop] 0 gm TOP BID #1 bottle Vitamin B Complex 1 each PO DAILY #30 cap Cholecalciferol (Vitamin D3) [Vitamin D3] 2,000 unit PO DAILY #30 Home Medications: Home Meds Cholecalciferol (Vitamin D3) [Vitamin D3] 2,000 unit PO DAILY #30 03/20/20 [Rx] Gabapentin [Neurontin] 100 mg PO TID #90 03/20/20 [Rx] Magnesium Oxide 400 mg PO DAILY #30 03/20/20 [Rx] Nystatin [Nystop] 0 gm TOP BID #1 bottle 03/20/20 [Rx] Vitamin B Complex 1 each PO DAILY #30 cap 03/20/20 [Rx] amLODIPine [Norvasc] 10 mg PO DAILY #30 03/20/20 [Rx] busPIRone [Buspar] 5 mg PO BID #30 03/20/20 [Rx] - Discharge Summary/Plan Comment DC Time >30 min.: Yes - General Info Date of Service: 03/20/20 Admission Dx/Problem (Free Text: Admission Diagnosis/Problem Admission Diagnosis/Problem Sepsis Functional Status: Reports: Pain Controlled - Review of Systems General: Reports: No Symptoms HEENT: Reports: No Symptoms Pulmonary: Reports: No Symptoms Cardiovascular: Reports: No Symptoms Gastrointestinal: Reports: No Symptoms Genitourinary: Reports: No Symptoms Musculoskeletal: Reports: No Symptoms Skin: Reports: No Symptoms Neurological: Reports: No Symptoms Psychiatric: Reports: No Symptoms - Patient Data Vitals - Most Recent: Last Vital Signs Temp 99.2 F 03/20/20 08:00 Pulse 101 H 03/20/20 08:00 Resp 20 03/20/20 08:00 BP 121/65 03/20/20 08:20 Pulse Ox 93 L 03/20/20 08:00 Weight - Most Recent: 169 lb 1.6 oz I&O - Last 24 hours: Intake & Output 03/19/20 03/20/20 03/20/20 22:59 06:59 14:59 Intake Total 370 300 360 Balance 370 300 360 Med Orders - Current: Current Medications Acetaminophen (Tylenol Extra Strength) 1,000 mg PO Q6HR PRN PRN Reason: Pain (mild 1-3) Last Admin: 03/16/20 20:57 Dose: 1,000 mg Documented by: Hydrocodone Bitart/Acetaminophen ([place] 325-5 Mg) 1 tab PO Q4H PRN PRN Reason: Pain Last Admin: 03/20/20 08:29 Dose: 1 tab Documented by: Amlodipine Besylate (Norvasc) 10 mg PO DAILY [facility] Last Admin: 03/20/20 08:20 Dose: 10 mg Documented by: Ascorbic Acid (Vitamin C) 500 mg PO DAILY [facility] Last Admin: 03/20/20 08:19 Dose: 500 mg Documented by: Buspirone HCl (Buspar) 7.5 mg PO BID [facility] Last Admin: 03/20/20 08:19 Dose: 7.5 mg Documented by: Cholecalciferol (Vitamin D3) 50 mcg PO DAILY [facility] Last Admin: 03/20/20 08:19 Dose: 50 mcg Documented by: Gabapentin (Neurontin) 300 mg PO TID [facility] Last Admin: 03/20/20 08:20 Dose: 300 mg Documented by: Ibuprofen (Motrin) 400 mg PO Q8H PRN PRN Reason: moderate pain Last Admin: 03/19/20 21:44 Dose: 400 mg Documented by: Loperamide HCl (Imodium) 2 mg PO Q6H PRN PRN Reason: Diarrhea Last Admin: 03/17/20 15:55 Dose: 2 mg Documented by: Mupirocin (Bactroban Oint) 0 gm TOP BID [facility] Last Admin: 03/20/20 08:20 Dose: 1 applic Documented by: Nystatin (Nystop) 0 gm TOP BID [facility] Last Admin: 03/20/20 08:21 Dose: 1 applic Documented by: Sodium Chloride (Saline Flush) 10 ml FLUSH ASDIRECTED PRN PRN Reason: Keep Vein Open Last Admin: 03/14/20 21:56 Dose: 10 ml Documented by: Vitamin B Complex (Vitamin B Complex) 1 each PO DAILY [facility] Last Admin: 03/20/20 08:19 Dose: 1 each Documented by: Zolpidem Tartrate (Ambien) 5 mg PO BEDTIME PRN PRN Reason: Sleep Last Admin: 03/19/20 21:43 Dose: 5 mg Documented by: Discontinued Medications Hydrocodone Bitart/Acetaminophen ([place] 325-5 Mg) 1 tab PO QID PRN PRN Reason: Pain Last Admin: 03/15/20 06:37 Dose: 1 tab Documented by: Gabapentin (Neurontin) 100 mg PO TID [facility] Last Admin: 03/14/20 13:38 Dose: 100 mg Documented by: Ceftriaxone Sodium 2 gm/ (Sodium Chloride) 100 mls @ 200 mls/hr IV Q24H [facility] Last Admin: 03/19/20 17:54 Dose: 200 mls/hr Documented by: Magnesium Oxide (Magnesium Oxide) 250 mg PO BID@0800,1800 [facility] Stop: 03/12/20 08:01 Last Admin: 03/12/20 08:51 Dose: 250 mg Documented by: Non-Formulary Medication (Buspirone [Buspar]) 5 mg PO BID [facility] Non-Formulary Medication (Magnesium Oxide [Magnesium Oxide]) 400 mg PO DAILY [facility] Potassium Chloride (Klor-Con 10) 40 meq PO ONETIME ONE Stop: 03/13/20 07:21 Last Admin: 03/13/20 07:44 Dose: 40 meq Documented by: - Exam General: Reports: Alert, Oriented HEENT: Reports: Pupils Equal, Pupils Reactive, EOMI, Mucous Membr. Moist/[place]: Reports: Supple Lungs: Reports: Clear to Auscultation, Normal Respiratory Effort Cardiovascular: Reports: Regular Rate, Regular Rhythm GI/Abdominal Exam: Normal Bowel Sounds, Soft, Non-Tender, No Organomegaly, No Distention, No Abnormal Bruit, No Mass, Pelvis Stable (Female) Exam: Normal External Exam, Normal Speculum Exam, Normal Bimanual Exam Rectal (Female) Exam: Normal Exam, Normal Rectal Tone Back Exam: Reports: Normal Inspection, Full Range of Motion Extremities: Normal Inspection, Normal Range of Motion, Non-Tender, No Pedal Edema, Normal Capillary Refill Skin: Reports: Warm, Dry, Intact Wound/Incisions: Reports: Healing Well Neurological: Reports: No New Focal Deficit Psy/Mental Status: Reports: Alert, Normal Affect, Normal Mood *Q Meaningful Use (DIS) - VTE *Q VTE Anticoagulation Contraindications: Medical/Procedure Contrai
== END 2020-03-20 13:05 | disposition home or self-care (01) | DRG 690 ==
LOC: DL.MS 16:23
PROVIDERS: ADMIT Internal Medicine; ATTEND Student in an Organized Health Care Education/Training Program
DX: N39.0 Urinary tract infection, site not specified (principal); R53.1 Weakness; N13.2 Hydronephrosis with renal and ureteral calculous obstruction; I10 Essential (primary) hypertension; M54.5 Low back pain; M19.90 Unspecified osteoarthritis, unspecified site; G89.29 Other chronic pain; G62.9 Polyneuropathy, unspecified; Z96.619 Presence of unspecified artificial shoulder joint; B96.4 Proteus (mirabilis) (morganii) as the cause of diseases classified elsewhere; E78.5 Hyperlipidemia, unspecified; R32 Unspecified urinary incontinence; R33.9 Retention of urine, unspecified; Z79.899 Other long term (current) drug therapy; Z90.49 Acquired absence of other specified parts of digestive tract
CPT/HCPCS: 36415; 80048; 80053; 85025; 85651; 86140; 97116-GP; 97162-GP; 97165-GO; 97530-GO; 97530-GP; 97535-GO; A9270-GY; J0696; J7050